=== PATIENT | male | born 1985 | race American Indian/Alaskan Native ===

== ENCOUNTER 2021-12-10 12:11 | Emergency (ER) | payer SELFPAY ==
[2021-12-10] MEDS ORDERED: MORPHINE 4 MG/1 ML INJ IV ONE (12:47)
[2021-12-10] MEDS ORDERED: FAMOTIDINE 20 MG/2 ML INJ IV ONE (12:51)
[2021-12-10] MEDS ORDERED: ONDANSETRON 4 MG/2 ML INJ IV ONE (12:54)
--- NOTE | 2021-12-10 12:54 | Emergency Department Report ---
ED General Adult HPI - General Chief complaint: Abdominal Pain Stated complaint: ABD PAIN X 2 DAYS Time Seen by Provider: 12/10/21 12:46 Source: patient, EMS Mode of arrival: Stretcher Limitations: No Limitations - History of Present Illness Initial comments: Patient is a 36-year-old male who presents with abdominal pain has been going on for the last 2 days. The abdominal pain is severe it is located in the epigastric area. It is a burning type of pain. He states he has a history of stomach ulcers. He has no nausea or vomiting. Severity scale (0 -10): 10 - Related Data Previous Rx's Medication Instructions Recorded Last Taken Type Ibuprofen [Motrin] 600 mg PO Q8H PRN #90 tablet 01/22/15 Unknown Rx Penicillin Vk [Veetids TAB] 500 mg PO QID #40 tablet 01/22/15 Unknown Rx traMADoL [Ultram] 50 mg PO Q6HR PRN #14 tablet 01/22/15 Unknown Rx Sucralfate [Carafate] 1 gm PO Q6HR #30 tablet 12/10/21 Unknown Rx Allergies Allergy/AdvReac Type Severity Reaction Status Date / Time No Known Allergies Allergy Verified 12/10/21 12:20 ED Review of Systems ROS: Stated complaint: ABD PAIN X 2 DAYS Other details as noted in HPI Constitutional: denies: chills, fever Eyes: denies: eye pain, eye discharge, vision change ENT: denies: ear pain, throat pain Respiratory: denies: cough, shortness of breath, wheezing Cardiovascular: denies: chest pain, palpitations Endocrine: no symptoms reported Gastrointestinal: abdominal pain. denies: nausea, diarrhea Genitourinary: denies: urgency, dysuria Musculoskeletal: denies: back pain, joint swelling, arthralgia Skin: denies: rash, lesions Neurological: denies: headache, weakness, paresthesias Psychiatric: denies: anxiety, depression Hematological/Lymphatic: denies: easy bleeding, easy bruising ED Past Medical Hx - Past Medical History Additional medical history: GASTRIC ULCERS - Surgical History Past Surgical History?: No - Social History Smoking Status: Never Smoker Substance Use Type: None - Medications Home Medications: Home Medications Medication Instructions Recorded Confirmed Last Taken Type Ibuprofen [Motrin] 600 mg PO Q8H PRN #90 tablet 01/22/15 Unknown Rx Penicillin Vk [Veetids TAB] 500 mg PO QID #40 tablet 01/22/15 Unknown Rx traMADoL [Ultram] 50 mg PO Q6HR PRN #14 tablet 01/22/15 Unknown Rx Sucralfate [Carafate] 1 gm PO Q6HR #30 tablet 12/10/21 Unknown Rx ED Physical Exam - General Limitations: No Limitations General appearance: alert, in no apparent distress - Head Head exam: Present: atraumatic, normocephalic - Eye Eye exam: Present: normal appearance - ENT ENT exam: Present: mucous membranes moist - Neck Neck exam: Present: normal inspection - Respiratory Respiratory exam: Present: normal lung sounds bilaterally. Absent: respiratory distress - Cardiovascular Cardiovascular Exam: Present: regular rate, normal rhythm. Absent: systolic murmur, diastolic murmur, rubs, gallop - GI/Abdominal GI/Abdominal exam: Present: soft, normal bowel sounds - Rectal Rectal exam: Present: deferred - Extremities Exam Extremities exam: Present: normal inspection - Back Exam Back exam: Present: normal inspection - Neurological Exam Neurological exam: Present: alert, oriented X3 - Psychiatric Psychiatric exam: Present: normal affect, normal mood - Skin Skin exam: Present: warm, dry, intact, normal color. Absent: rash ED Course Vital Signs 12/10/21 12/10/21 12:17 12:41 Temperature 98.9 F 97.4 F L Pulse Rate 93 H 97 H Respiratory 20 20 Rate Blood Pressure 136/77 Blood Pressure 200/173 136/77 [Left] O2 Sat by Pulse 99 97 Oximetry ED Medical Decision Making - Lab Data Result diagrams: 12/10/21 13:35 12/10/21 13:35 Lab Results 12/10/21 12/10/21 Range/Units 13:35 13:35 WBC 18.6 H (4.5-11.0) K/mm3 RBC 4.60 (3.65-5.03) M/mm3 Hgb 12.3 (11.8-15.2) gm/dl Hct 39.0 (35.5-45.6) % MCV 85 (84-94) fl MCH 27 L (28-32) pg MCHC 32 (32-34) % RDW 14.9 (13.2-15.2) % Plt Count 292 (140-440) K/mm3 Lymph % (Auto) 5.1 L (13.4-35.0) % Craig % (Auto) 10.4 H (0.0-7.3) % Eos % (Auto) 0.0 (0.0-4.3) % Baso % (Auto) 0.2 (0.0-1.8) % Lymph # (Auto) 0.9 L (1.2-5.4) K/mm3 Craig # (Auto) 1.9 H (0.0-0.8) K/mm3 Eos # (Auto) 0.0 (0.0-0.4) K/mm3 Baso # (Auto) 0.0 (0.0-0.1) K/mm3 Seg Neutrophils % 84.3 H (40.0-70.0) % Seg Neutrophils # 15.6 H (1.8-7.7) K/mm3 Sodium 134 L (137-145) mmol/L Potassium 5.0 (3.6-5.0) mmol/L Chloride 96.7 L (98-107) mmol/L Carbon Dioxide 24 (22-30) mmol/L Anion Gap 18 mmol/L BUN 12 (9-20) mg/dL Creatinine 0.6 L (0.8-1.3) mg/dL Estimated GFR > 60 ml/min BUN/Creatinine Ratio 20 % Glucose 107 H (75-100) mg/dL Calcium 9.8 (8.4-10.2) mg/dL Total Bilirubin 0.50 (0.1-1.2) mg/dL AST 21 (5-40) units/L ALT 20 (7-56) units/L Alkaline Phosphatase 74 (35-129) units/L Total Protein 7.7 (6.3-8.2) g/dL Albumin 4.5 (3.9-5) g/dL Albumin/Globulin Ratio 1.4 % Lipase 11 L (13-60) units/L - Radiology Data Radiology results: report reviewed, image reviewed CT abdomen: Shows no acute abdominal process - Medical Decision Making Chief medical diagnosis: Peptic ulcer Differential medical diagnosis, pancreatitis, small bowel obstruction CT scan, CBC, BMP, IV fluids, IV pain medicine Critical care attestation.: If time is entered above; I have spent that time in minutes in the direct care of this critically ill patient, excluding procedure time. ED Disposition Clinical Impression: Peptic ulcer disease, Epigastric abdominal pain Disposition: HOME / SELF CARE / HOMELESS Is pt being admited?: No Does the pt Need Aspirin: No Condition: Stable Instructions: Peptic Ulcer, Flank Pain, Adult Prescriptions: Sucralfate [Carafate] 1 gm PO Q6HR #30 tablet
[2021-12-10 14:15] LABS: Alanine Aminotransferase 20 units/L (7-56); Albumin 4.5 g/dL (3.9-5); Blood Urea Nitrogen 12 mg/dL (9-20); Calcium 9.8 mg/dL (8.4-10.2); Hemolysis Index 160
[2021-12-10 14:18] LABS: BUN/Creatinine Ratio 20
[2021-12-10 14:20] LABS: Basophils % (Auto) 0.2 % (0.0-1.8); Hemoglobin 12.3 gm/dl (11.8-15.2); Lymphocytes # (Auto) 0.9 K/mm3 (1.2-5.4); Lymphocytes % (Auto) 5.1 % (13.4-35.0); Mean Corpuscular HGB Conc 32 % (32-34); Mean Corpuscular Volume 85 fl (84-94); Monocytes # (Auto) 1.9 K/mm3 (0.0-0.8); Monocytes % (Auto) 10.4 % (0.0-7.3); Platelet Count 292 K/mm3 (140-440); Red Cell Distribution Width 14.9 % (13.2-15.2)
[2021-12-10] MEDS ORDERED: DICYCLOMINE 20 MG/2 ML INJ IM ONE (14:31)
[2021-12-10] MEDS ORDERED: SODIUM CHLORIDE 0.9% 1000 ML 1,000 ML IV ONE (14:31)
[2021-12-10] MEDS ORDERED: HYDROmorphone 1 MG/1 ML INJ IV ONE (14:32)
--- NOTE | 2021-12-10 15:51 | Cat Scan Report ---
CT ABDOMEN AND PELVIS WITH CONTRAST INDICATION / CLINICAL INFORMATION: abd pain 100ml of [id number]. TECHNIQUE: Axial CT images were obtained through the abdomen and pelvis after 100 cc of Omnipaque 350 IV contras t. Sagittal and coronal reformatted images. All CT scans at this location are performed using CT dose reduction for ALARA by means of automated exposure control. COMPARISON: None available. FINDINGS: LOWER CHEST: Heart size is normal. There is a moderate pericardial effusion measuring up to 1 cm in t hickness. Mild diffuse pericardial thickening is suspected. No pericardial calcifications or obvious mass. Trace left pleural effusion is identified. The visualized lung bases are clear otherwise. LIVER: No significant abnormality. GALLBLADDER: No significant abnormality. BILE DUCTS: No significant abnormality. PANCREAS: No significant abnormality. SPLEEN: No significant abnormality. ADRENALS: No significant abnormality. RIGHT KIDNEY and URETER: No significant abnormality. LEFT KIDNEY and URETER: No significant abnormality. 1.4 cm cyst near mid pole is noted. STOMACH and SMALL BOWEL: No significant abnormality. COLON: No significant abnormality. APPENDIX: Not confidently identified. PERITONEUM: No free fluid. No free air. No fluid collection. LYMPH NODES: No significant adenopathy. AORTA and ARTERIES: No significant abnormality. IVC and VEINS: No significant abnormality. URINARY BLADDER: No significant abnormality. REPRODUCTIVE ORGANS: No significant abnormality. ADDITIONAL FINDINGS: None. SKELETAL SYSTEM: No significant abnormality. IMPRESSION: No acute process is identified in the abdomen or pelvis. Slightly complex pericardial effusion as outlined above. Trace left pleural effusion. Simple left renal cyst. Signer Name: Maicol Frey Jr, MD Signed: 12/10/2021 3:47 PM Workstation Name: [id number]
[2021-12-10] MEDS ORDERED: LIDOCAINE VISCOUS 2% 15 ML ORAL LIQD PO ONE (15:57)
[2021-12-10] MEDS ORDERED: ALUM-MAG HYDROXIDE-SIMETHICONE 200-200-20MG/5ML ORAL LIQD 30 ML PO ONE (15:57)
[2021-12-10 16:26] VITALS: BP 130/68
== END 2021-12-10 16:25 | disposition home or self-care (01) ==
LOC: ED 12:11
DX: K27.9 Peptic ulcer, site unspecified, unspecified as acute or chronic, without hemorrhage or perforation (principal); R10.13 Epigastric pain
CPT/HCPCS: 36415; 74177; 80053; 83690; 85025; 96361; 96372; 96374; 96375; 99284; J0500; J1170; J2270; J2405; J3490; J7030; Q9967